=== PATIENT | male | born 1960 | race Caucasian/White ===

== ENCOUNTER 2020-08-11 17:14 | Emergency (ER) | payer OTHER, MEDICARE ==
[2020-08-11] MEDS ORDERED: Sodium Chloride 0.9% 10 ML Syringe FLUSH PRN (17:23)
--- NOTE | 2020-08-11 17:55 | CR ---
[id number] RAD/RAD Chest PA or AP 1V EXAM: FRONTAL CHEST INDICATION: Shortness of breath and fever. COMPARISON: None. DISCUSSION: Cardiomegaly. Mild to moderate bilateral interstitial opacities and central vascular congestion most suggestive of congestive heart failure. Atypical infection could have a similar appearance. A minimal right effusion is suggested. IMPRESSION: 1. Mild to moderate central vascular congestion and interstitial opacities, favor edema over infection. Glenroy Bradford MD 08/11/20 [id number] Thank you for allowing us to participate in the care of your patient.
[2020-08-11] MEDS ORDERED: Piperacillin/Tazobactam 3.375 GM in Sodium Chloride 0.9% 100 ML IV ONE (18:15)
[2020-08-11 18:16] LABS: CHLORIDE,CL 105 mmol/L (98-107); SODIUM,NA 137 mmol/L (136-145)
[2020-08-11 18:19] LABS: ANION GAP 16.1 mmol/L (5-15)
[2020-08-11] MEDS ORDERED: VANCOmycin 1.25 GM/250 ML 1.25 GM in Premix Bag 1 BAG IV ONE (18:19)
[2020-08-11] MEDS ORDERED: Furosemide 40 MG/4 ML VIAL IV ONE (18:27)
[2020-08-11 18:28] LABS: CORONAVIRUS COVID-19 NAA NEGATIVE (NEGATIVE)
--- NOTE | 2020-08-11 18:28 | EDM.PDOC ---
ED HPI GENERAL MEDICAL PROBLEM - General Time Seen by Provider: 08/11/20 17:14 Source of Information: Reports: Patient History Limitations: Reports: No Limitations - History of Present Illness INITIAL COMMENTS - FREE TEXT/NARRATIVE: Pt. presents to ER with complaints of chest pain, cough, fever, and fatigue that started earlier today. He had been given acetaminophen prior to transfer. Tmax since admission to ER was 37.4. Pt. was mildly diaphoretic on arrival to ER and complaining of chills. He has had intermittent cough. He denies any nausea or vomiting. Denies any diarrhea today. Pt. has a history of TBI and appears to bradley ve trouble recollecting events of the day/PMH. Pt. is a resident at the [facility]. [facility]. There is a paucity of information available from his detention chart as he was only placed in the [facility] on 07/10; I do not have access to his discharge summary or admit H and P from his last admission. "Respiratory failure" "luo virus" were listed on his detention records. Nursing staff at detention relates that the reason for admission to the detention was TBI, ESRD, CHF, hypertension, and diabetes. He recently had a dialysis fistula placed in anticipation of future need for dialysis. Pt. states has been without chest pain since he arrived at the ER. He has been experiencing increased peripheral edema. He complains of dyspnea, particularly on exertion as well as orthopnea. Staff states that he has a history of edema to the lower extremities, but it is worse in the past day. Denies any urinary symptoms. Onset: Today Onset Date: 08/11/20 Location: Reports: Chest, Lower Extremity, Left, Lower Extremity, Right, Generalized Associated Symptoms: Reports: Chest Pain, Cough, Diaphoresis, Fever/Chills, Malaise, Weakness Treatments BANKING ASSISTANT: Reports: Acetaminophen Generalized Pain Score (Numeric/FACES): 5 - Related Data Allergies Allergy/AdvReac Type Severity Reaction Status Date / Time No Known Allergies Allergy Verified 08/11/20 17:23 Home Meds: Home Meds Acetaminophen 2 tab PO Q6H PRN 08/11/20 [History] Aspirin [Aspirin EC] 81 mg PO DAILY 08/11/20 [History] Bisacodyl [Gentle Laxative] 10 mg RC DAILY PRN 08/11/20 [History] Chlorthalidone 25 mg PO DAILY 08/11/20 [History] Famotidine 10 mg PO DAILY 08/11/20 [History] Ferrous Sulfate 325 mg PO DAILY 08/11/20 [History] Gabapentin [Neurontin] 200 mg PO BID 08/11/20 [History] Insulin Aspart [Insulin Aspart Penfill] 5 unit SQ WITHMEALSANDBED 08/11/20 [History] Insulin Glarg,Human.Rec.Analog [Lantus] 12 unit SUBCUT DAILY 08/11/20 [History] Lidocaine 5% [Lidoderm 5%] 1 patch TOP DAILY 08/11/20 [History] Lidocaine 5% [Lidoderm 5%] 1 patch TOP DAILY 08/11/20 [History] Liraglutide [Victoza 2-Chad] 1.8 mg SQ DAILY 08/11/20 [History] Multivitamin 1 each PO DAILY 08/11/20 [History] NIFEdipine [Procardia Xl] 60 mg PO BID 08/11/20 [History] Nitroglycerin [Nitrostat] 0.4 mg SL ASDIRECTED PRN 08/11/20 [History] Oxymetazoline [Nasal Decongestant] 15 ml MINERVA BID PRN 08/11/20 [History] Sennosides/Docusate Sodium [Senna Plus 8.6-50 mg Tablet] 2 tab PO BID 08/11/20 [History] Simvastatin 40 mg PO DAILY 08/11/20 [History] Sodium Bicarbonate 650 mg PO TID 08/11/20 [History] carvediloL [Carvedilol] 25 mg PO BID 08/11/20 [History] cloNIDine [Clonidine] 1 each TD ASDIRECTED 08/11/20 [History] hydrALAZINE [Apresoline] 100 mg PO TID 08/11/20 [History] traZODone 50 mg PO BEDTIME 08/11/20 [History] ED ROS GENERAL - Review of Systems Review Of Systems: See Below Constitutional: Reports: Fever, Chills, Malaise, Fatigue, Diaphoresis (mild diaphoresis on arrival to ER.) HEENT: Reports: No Symptoms. Denies: Sinus Problem, Throat Pain, Vertigo Respiratory: Reports: Shortness of Breath, Pleuritic Chest Pain, Cough Cardiovascular: Reports: Dyspnea on Exertion, Orthopnea Endocrine: Reports: Fatigue, High Glucose GI/Abdominal: Reports: Distension (abdominal distention chronically; denies discomfort.). Denies: Black Stool, Bloody Stool, Diarrhea, Hematemesis, Hematochezia, Melena : Reports: No Symptoms Musculoskeletal: Reports: No Symptoms Skin: Reports: Pallor, Dryness, Other (Ashen, harrington) Neurological: Reports: Weakness, Other (Hx. TBI) Psychiatric: Reports: Other (History of alcoholism) Hematologic/Lymphatic: Reports: Anemia (Hemoglobin 4/7 was 8.0. Iron was 23, TIBC 165, Iron sat 14. Ferritin 180. WBC 3.1. Platelet 185.) Immunologic: Reports: No Symptoms ED EXAM, GENERAL - Physical Exam Exam: See Below Exam Limited By: No Limitations General Appearance: Alert, WD/WN, Lethargic, Mild Distress Throat/Mouth: No Airway Compromise Head: Atraumatic, Normocephalic Neck: Normal Inspection, Supple Respiratory/Chest: Respiratory Distress (mild resp. distress), Decreased Breath Sounds, Crackles, Rales Cardiovascular: Normal Peripheral Pulses, Regular Rate, Rhythm, Other (4+ peripheral edema) Peripheral Pulses: 4+: Radial (L) GI/Abdominal: Non-Tender, Distended (Male) Exam: Deferred Rectal (Males) Exam: Deferred Back Exam: Normal Inspection, Full Range of Motion Extremities: Normal Inspection, Normal Range of Motion Neurological: Alert, Oriented, CN II-XII Intact, No Motor/Sensory Deficits, Slow to Respond, Memory Loss Recent Events (chronic problem due to TBI), Other (No unilateral weakness, facial droop, dysarthria, aphasia, vision change) Psychiatric: Normal Mood, Anxious #1 Interpretation Rhythm: NSR ST-T: Other (No acute ST or T wave abnormality) Course - Vital Signs Last Recorded V/S: Last Vital Signs Temp 37.4 C 08/11/20 18:39 Pulse 90 08/11/20 19:00 Resp 22 H 08/11/20 19:00 BP 151/81 H 08/11/20 19:00 Pulse Ox 97 08/11/20 19:00 - Orders/Labs/Meds Orders: Active Orders 24 hr Category Date Time Status CULTURE BLOOD [BC] Stat Lab 08/11/20 17:26 Ordered CULTURE BLOOD [BC] Stat Lab 08/11/20 17:26 Ordered Blood Culture x2 Reflex Set [OM.PC] Stat Oth 08/11/20 17:24 Ordered Peripheral IV Insertion Adult [.] Routine Ot 08/11/20 17:24 Ordered Pulse Oximetry Continuous Monitoring [.] Routine Ot 08/11/20 17:24 Ordered Labs: Laboratory Tests 08/11/20 08/11/20 08/11/20 Range/Units 17:28 17:28 17:28 WBC 2.0 L (4.0-10.0) x10^3/uL RBC 2.95 L (4.5-6.0) x10^6/uL Hgb 8.2 L (14.0-18.0) g/dL Hct 25.9 L (40.0-52.0) % MCV 87.8 (78.0-93.0) fL MCH 27.8 (26.0-32.0) pg MCHC 31.7 L (32.0-36.0) g/dL RDW Coeff of Nisha 15.7 H (10.0-15.0) % Plt Count 206 (130-400) x10^3/uL Add Manual Diff Yes Neutrophils % (Manual) 53 (50-80) % Band Neutrophils % 6 (0-6) % Lymphocytes % (Manual) 22 L (25-50) % Monocytes % (Manual) 13 H (2-11) % Eosinophils % (Manual) 1 (0-4) % Basophils % (Manual) 2 H (0-1) % Metamyelocytes % 2 H (0) % Myelocytes % 1 H (0) % Platelet Estimate Adequate Hypochromasia 1+ slight H Anisocytosis 1+ slight H PT 11.0 (9.9-12.5) SEC INR 1.0 L (2.0-3.5) APTT (25.6-32.8) SEC Sodium 137 (136-145) mmol/L Potassium 4.1 (3.5-5.1) mmol/L Chloride 105 (98-107) mmol/L Carbon Dioxide 20 L (21-32) mmol/L Anion Gap 16.1 H (5-15) mmol/L BUN 54 H (7-18) mg/dL Creatinine 3.2 H* (0.70-1.30) mg/dL Est Cr Clr Drug Dosing TNP Estimated GFR (MDRD) 20 Glucose 362 H (70-99) mg/dL Lactic Acid (0.4-2.0) mmol/L Calcium 7.6 L (8.5-10.1) mg/dL Corrected Calcium 9.04 (8.5-10.1) mg/dL Magnesium 2.0 (1.8-2.4) mg/dL Total Bilirubin 0.4 (0.2-1.0) mg/dL AST 12 L (15-37) U/L ALT 22 (16-63) U/L Alkaline Phosphatase 116 (46-116) U/L Troponin I High Sens 21 (<=76) ng/L C-Reactive Protein 5.0 H (<=0.9) mg/dL NT-Pro-B Natriuret Pep 82755 H (<=125) pg/mL Total Protein 6.4 (6.4-8.2) g/dL Albumin 2.2 L (3.4-5.0) g/dL Globulin 4.2 Albumin/Globulin Ratio 0.52 Urine Color (YELLOW) Urine Appearance (CLEAR) Urine pH (5.0-8.0) Ur Specific [place] Urine Protein (NEGATIVE) mg/dL Urine Glucose (UA) (NEGATIVE) mg/dL Urine Ketones (NEGATIVE) mg/dL Urine Occult Blood (NEGATIVE) Urine Nitrite (NEGATIVE) Urine Bilirubin (NEGATIVE) Urine Urobilinogen (0.2) EU/dL Ur Leukocyte Esterase (NEGATIVE) U Hyaline Cast (Auto) Urine RBC (NOT SEEN) /HPF Urine WBC (NOT SEEN) /HPF Ur Squamous Epith Cells (NOT SEEN) /HPF Urine Bacteria (NOT SEEN) /HPF Granular Casts (Auto) Urine Mucus (NOT SEEN) /LPF Influenza Type A RNA (NEGATIVE) Influenza Type B RNA (NEGATIVE) SARS-CoV-2 RNA (PAGE) (NEGATIVE) 08/11/20 08/11/20 08/11/20 Range/Units 17:28 17:28 17:35 WBC (4.0-10.0) x10^3/uL RBC (4.5-6.0) x10^6/uL Hgb (14.0-18.0) g/dL Hct (40.0-52.0) % MCV (78.0-93.0) fL MCH (26.0-32.0) pg MCHC (32.0-36.0) g/dL RDW Coeff of Nisha (10.0-15.0) % Plt Count (130-400) x10^3/uL Add Manual Diff Neutrophils % (Manual) (50-80) % Band Neutrophils % (0-6) % Lymphocytes % (Manual) (25-50) % Monocytes % (Manual) (2-11) % Eosinophils % (Manual) (0-4) % Basophils % (Manual) (0-1) % Metamyelocytes % (0) % Myelocytes % (0) % Platelet Estimate Hypochromasia Anisocytosis PT (9.9-12.5) SEC INR (2.0-3.5) APTT 25.3 L (25.6-32.8) SEC Sodium (136-145) mmol/L Potassium (3.5-5.1) mmol/L Chloride (98-107) mmol/L Carbon Dioxide (21-32) mmol/L Anion Gap (5-15) mmol/L BUN (7-18) mg/dL Creatinine (0.70-1.30) mg/dL Est Cr Clr Drug Dosing Estimated GFR (MDRD) Glucose (70-99) mg/dL Lactic Acid 1.3 (0.4-2.0) mmol/L Calcium (8.5-10.1) mg/dL Corrected Calcium (8.5-10.1) mg/dL Magnesium (1.8-2.4) mg/dL Total Bilirubin (0.2-1.0) mg/dL AST (15-37) U/L ALT (16-63) U/L Alkaline Phosphatase (46-116) U/L Troponin I High Sens (<=76) ng/L C-Reactive Protein (<=0.9) mg/dL NT-Pro-B Natriuret Pep (<=125) pg/mL Total Protein (6.4-8.2) g/dL Albumin (3.4-5.0) g/dL Globulin Albumin/Globulin Ratio Urine Color (YELLOW) Urine Appearance (CLEAR) Urine pH (5.0-8.0) Ur Specific [place] Urine Protein (NEGATIVE) mg/dL Urine Glucose (UA) (NEGATIVE) mg/dL Urine Ketones (NEGATIVE) mg/dL Urine Occult Blood (NEGATIVE) Urine Nitrite (NEGATIVE) Urine Bilirubin (NEGATIVE) Urine Urobilinogen (0.2) EU/dL Ur Leukocyte Esterase (NEGATIVE) U Hyaline Cast (Auto) Urine RBC (NOT SEEN) /HPF Urine WBC (NOT SEEN) /HPF Ur Squamous Epith Cells (NOT SEEN) /HPF Urine Bacteria (NOT SEEN) /HPF Granular Casts (Auto) Urine Mucus (NOT SEEN) /LPF Influenza Type A RNA Negative (NEGATIVE) Influenza Type B RNA Negative (NEGATIVE) SARS-CoV-2 RNA (PAGE) Negative (NEGATIVE) 08/11/20 Range/Units 18:02 WBC (4.0-10.0) x10^3/uL RBC (4.5-6.0) x10^6/uL Hgb (14.0-18.0) g/dL Hct (40.0-52.0) % MCV (78.0-93.0) fL MCH (26.0-32.0) pg MCHC (32.0-36.0) g/dL RDW Coeff of Nisha (10.0-15.0) % Plt Count (130-400) x10^3/uL Add Manual Diff Neutrophils % (Manual) (50-80) % Band Neutrophils % (0-6) % Lymphocytes % (Manual) (25-50) % Monocytes % (Manual) (2-11) % Eosinophils % (Manual) (0-4) % Basophils % (Manual) (0-1) % Metamyelocytes % (0) % Myelocytes % (0) % Platelet Estimate Hypochromasia Anisocytosis PT (9.9-12.5) SEC INR (2.0-3.5) APTT (25.6-32.8) SEC Sodium (136-145) mmol/L Potassium (3.5-5.1) mmol/L Chloride (98-107) mmol/L Carbon Dioxide (21-32) mmol/L Anion Gap (5-15) mmol/L BUN (7-18) mg/dL Creatinine (0.70-1.30) mg/dL Est Cr Clr Drug Dosing Estimated GFR (MDRD) Glucose (70-99) mg/dL Lactic Acid (0.4-2.0) mmol/L Calcium (8.5-10.1) mg/dL Corrected Calcium (8.5-10.1) mg/dL Magnesium (1.8-2.4) mg/dL Total Bilirubin (0.2-1.0) mg/dL AST (15-37) U/L ALT (16-63) U/L Alkaline Phosphatase (46-116) U/L Troponin I High Sens (<=76) ng/L C-Reactive Protein (<=0.9) mg/dL NT-Pro-B Natriuret Pep (<=125) pg/mL Total Protein (6.4-8.2) g/dL Albumin (3.4-5.0) g/dL Globulin Albumin/Globulin Ratio Urine Color Dark yellow H (YELLOW) Urine Appearance Slightly cloudy H (CLEAR) Urine pH 5.0 (5.0-8.0) Ur Specific [place] 1.025 Urine Protein >=300 H (NEGATIVE) mg/dL Urine Glucose (UA) 250 H (NEGATIVE) mg/dL Urine Ketones Negative (NEGATIVE) mg/dL Urine Occult Blood Negative (NEGATIVE) Urine Nitrite Negative (NEGATIVE) Urine Bilirubin Negative (NEGATIVE) Urine Urobilinogen 0.2 (0.2) EU/dL Ur Leukocyte Esterase Negative (NEGATIVE) U Hyaline Cast (Auto) Few Urine RBC 0-5 (NOT SEEN) /HPF Urine WBC 0-5 (NOT SEEN) /HPF Ur Squamous Epith Cells Not seen (NOT SEEN) /HPF Urine Bacteria Rare (NOT SEEN) /HPF Granular Casts (Auto) Occasional Urine Mucus Occasional H (NOT SEEN) /LPF Influenza Type A RNA (NEGATIVE) Influenza Type B RNA (NEGATIVE) SARS-CoV-2 RNA (PAGE) (NEGATIVE) Meds: Medications Discontinued Medications Generic Name Dose Route Start Last Admin Trade Name Freq PRN Reason Stop Dose Admin Furosemide 40 mg 08/11/20 18:27 08/11/20 18:40 Furosemide 40 Mg/4 Ml Vial IV 08/11/20 18:28 40 mg ONETIME ONE Administration Piperacillin Sod/Tazobactam 100 mls @ 200 mls/hr 08/11/20 18:15 08/11/20 18:43 Sod 3.375 gm/ Sodium Chloride IV 08/11/20 18:44 200 mls/hr STAT ONE Administration Vancomycin HCl 1.25 gm/ Premix 250 mls @ 200 mls/hr 08/11/20 18:19 08/11/20 19:20 IV 08/11/20 19:33 200 mls/hr STAT ONE Administration Sodium Chloride 10 ml 04/25/21 17:23 Sodium Chloride 0.9% 10 Ml Syringe FLUSH ASDIRECTED PRN Keep Vein Open - Radiology Interpretation Free Text/Narrative:: Portable chest x-ray obtain. Bibasilar opacification noted, failure vs. infectious process. No pneumothorax. No lobar pneumonia noted. Departure - Departure Time of Disposition: 19:15 Disposition: DC/Tfer to [facility] 02 Clinical Impression: CHF (congestive heart failure), ESRD with anemia, Healthcare-associated pneumonia - Discharge Information Referrals: Rissa Franco MD [Primary Care Provider] - Forms: ED Department Discharge, Interfacility Transfer [facility] Sepsis Event Note (ED) - Evaluation Sepsis Screening Result: Possible Sepsis Risk - Focused Exam Vital Signs: Vital Signs Temp Pulse Resp BP Pulse Ox 08/11/20 19:00 90 22 H 151/81 H 97 08/11/20 18:39 37.4 C 91 22 H 151/81 H 96 08/11/20 17:14 37.4 C 98 28 H 161/84 H 94 L - Problem List Review Problem List Initiated/Reviewed/Updated: Yes - My Orders Last 24 Hours: My Active Orders 08/11/20 17:24 Blood Culture x2 Reflex Set [OM.PC] Stat Peripheral IV Insertion Adult [OM.PC] Routine Pulse Oximetry Continuous Monitoring [OM.PC] Routine 08/11/20 17:26 CULTURE BLOOD [BC] Stat CULTURE BLOOD [BC] Stat - Assessment/Plan Last 24 Hours: My Active Orders 08/11/20 17:24 Blood Culture x2 Reflex Set [OM.PC] Stat Peripheral IV Insertion Adult [OM.PC] Routine Pulse Oximetry Continuous Monitoring [OM.PC] Routine 08/11/20 17:26 CULTURE BLOOD [BC] Stat CULTURE BLOOD [BC] Stat Plan: Pt. will be transferred to [facility] via [facility] ground ambulance. He is a code 1. Pt. was given lasix 40mg IV. ProBNP was >40,000. Pt. reported some improvement in shortness of breath. He is not on a loop diuretic as an outpatient. Pt. was started on renally adjusted zosyn a 3.375gm IV as well as vancomycin 1.25mg IV. Bibasilar opacification noted on chest x-ray. [place] in [place], and is a resident at a SNF, thus he was covered for pseudomonas and MRSA. Pt. guardian was contacted, as was the detention. Attempts were made to contact the pt. as well, but there was no answer.
== END 2020-08-11 19:25 | disposition short-term general hospital (02) ==
LOC: VM.ED 17:14
DX: J18.9 Pneumonia, unspecified organism (principal); I13.2 Hypertensive heart and chronic kidney disease with heart failure and with stage 5 chronic kidney disease, or end stage renal disease; E11.22 Type 2 diabetes mellitus with diabetic chronic kidney disease; N18.6 End stage renal disease; I50.9 Heart failure, unspecified; D63.1 Anemia in chronic kidney disease; R60.0 Localized edema; Z20.822 Contact with and (suspected) exposure to COVID-19; Z79.82 Long term (current) use of aspirin; Z79.4 Long term (current) use of insulin; Z79.899 Other long term (current) drug therapy
CPT/HCPCS: 0240U; 36415; 71045; 80053; 81001; 83605; 83735; 83880; 84484; 85025; 85610; 85730; 86140; 87040; 93005; 93010; 96365; 96375; 99284; 99285-25; J1940; J2543; J3370

== ENCOUNTER 2020-10-18 18:01 | Emergency (ER) | payer OTHER, MEDICARE ==
[2020-10-18] MEDS ORDERED: Sodium Chloride 0.9% 10 ML Syringe FLUSH PRN (18:12)
[2020-10-18] MEDS: Sodium Chloride 0.9% 500 ML IV ONE (18:28)
--- NOTE | 2020-10-18 18:30 | EDM.PDOC ---
ED HPI GENERAL MEDICAL PROBLEM - General Chief Complaint: Respiratory Problem Stated Complaint: shortness of breath, chilled Time Seen by Provider: 10/18/20 18:15 Source of Information: Reports: Patient, EMS, [facility] Records, Old Records History Limitations: Reports: Altered Mental Status (history of TBI, cognitive impairment) - History of Present Illness INITIAL COMMENTS - FREE TEXT/NARRATIVE: Patient is a [facility]iary resident and a poor historian. Call today from the penitentiary about increased shortness of breath. He does dialysis , and Wednesday. Has not missed dialysis and went yesterday. [facility] claims that he eats more than he is supposed to but they " can't watch him all the time". [facility] denies fever, patient has had covid and vaccination. He is a poor historian and states he feels short of breath, has chest pain and is cold. Also complains at arrival of need for bowel movement. Onset: Unknown/Unsure Duration: Constant, Getting Worse Improves with: Reports: None Worsens with: Reports: None Associated Symptoms: Reports: Confusion, Chest Pain, Cough, cough w sputum (brown), Fever/Chills - Related Data Allergies Allergy/AdvReac Type Severity Reaction Status Date / Time No Known Allergies Allergy Verified 10/18/20 19:08 Home Meds: Home Meds Acetaminophen 2 tab PO Q6H PRN 08/11/20 [History] Aspirin [Aspirin EC] 81 mg PO DAILY 08/11/20 [History] Bisacodyl [Gentle Laxative] 10 mg RC DAILY PRN 08/11/20 [History] Chlorthalidone 25 mg PO DAILY 08/11/20 [History] Famotidine 10 mg PO DAILY 08/11/20 [History] Ferrous Sulfate 325 mg PO DAILY 08/11/20 [History] Gabapentin [Neurontin] 200 mg PO BID 08/11/20 [History] Insulin Aspart [Insulin Aspart Penfill] 5 unit SQ WITHMEALSANDBED 08/11/20 [History] Insulin Glarg,Human.Rec.Analog [Lantus] 12 unit SUBCUT DAILY 08/11/20 [History] Lidocaine 5% [Lidoderm 5%] 1 patch TOP DAILY 08/11/20 [History] Lidocaine 5% [Lidoderm 5%] 1 patch TOP DAILY 08/11/20 [History] Liraglutide [Victoza 2-Chad] 1.8 mg SQ DAILY 08/11/20 [History] Multivitamin 1 each PO DAILY 08/11/20 [History] NIFEdipine [Procardia Xl] 60 mg PO BID 08/11/20 [History] Nitroglycerin [Nitrostat] 0.4 mg SL ASDIRECTED PRN 08/11/20 [History] Oxymetazoline [Nasal Decongestant] 15 ml MINERVA BID PRN 08/11/20 [History] Sennosides/Docusate Sodium [Senna Plus 8.6-50 mg Tablet] 2 tab PO BID 08/11/20 [History] Simvastatin 40 mg PO DAILY 08/11/20 [History] Sodium Bicarbonate 650 mg PO TID 08/11/20 [History] carvediloL [Carvedilol] 25 mg PO BID 08/11/20 [History] cloNIDine [Clonidine] 1 each TD ASDIRECTED 08/11/20 [History] hydrALAZINE [Apresoline] 100 mg PO TID 08/11/20 [History] traZODone 50 mg PO BEDTIME 08/11/20 [History] Past Medical History Cardiovascular History: Reports: CAD, Heart Failure, High Cholesterol, Hypertension Respiratory History: Reports: Other (See Below) Other Respiratory History: respiratory failure Gastrointestinal History: Reports: Other (See Below) Other Gastrointestinal History: dysphagia Genitourinary History: Reports: Renal Disease Musculoskeletal History: Reports: Back Pain, Chronic, Other (See Below) Other Musculoskeletal History: sacroiliitis Neurological History: Reports: Brain Injury, Seizure Psychiatric History: Reports: Addiction Endocrine/Metabolic History: Reports: Diabetes, Type II Hematologic History: Reports: Anemia - Infectious Disease History Infectious Disease History: Reports: C-Difficile, Other (See Below) Other Infectious Disease History: COVID-19 ED ROS GENERAL - Review of Systems Review Of Systems: See Below (difficult to obtain due to cognitive deficit) Constitutional: Reports: Chills, Malaise, Weakness, Fatigue HEENT: Reports: No Symptoms Respiratory: Reports: Shortness of Breath, Pleuritic Chest Pain, Cough, Sputum Cardiovascular: Reports: Chest Pain, Dyspnea on Exertion GI/Abdominal: Reports: No Symptoms, Abdominal Pain. Denies: Constipation, Diarrhea, Nausea, Vomiting Musculoskeletal: Reports: No Symptoms Skin: Reports: No Symptoms Neurological: Reports: Pre-Existing Deficit ED EXAM, SEPSIS - Physical Exam Exam: See Below Exam Limited By: Physical Impairment (limited movement on his own. does not transfer over) General Appearance: Alert, Moderate Distress Eye Exam: Bilateral Eye: EOMI, Normal Inspection, PERRL Ears: Normal External Exam Nose: Normal Inspection, Normal Mucosa, No Blood Throat/Mouth: Normal Inspection, Normal Lips, Normal Oropharynx, Normal Voice Head: Atraumatic Neck: Normal Inspection, Supple Respiratory/Chest: Decreased Breath Sounds, Crackles, Wheezing, Accessory Muscle Use, Prolonged Expiration Cardiovascular: JVD, Tachycardia, Systolic Murmur GI/Abdominal Exam: Normal Bowel Sounds, Soft, Non-Tender, Other (bruising from injections) Extremities: Pedal Edema Neurological: Alert, Confused, Memory Loss Remote Events, Memory Loss Recent Events. No: Oriented Skin: Other (hot to touch) #1 Interpretation EKG Date: 10/18/20 Time: 18:40 Rhythm: NSR Rate (Beats/Min): 114 EKG Interpretation Comments: lvh with repolarization abnormality. No STEMI, baseline wander Course - Vital Signs Last Recorded V/S: Last Vital Signs Temp 39.9 C H 10/18/20 19:40 Pulse 101 H 10/18/20 19:40 Resp 27 H 10/18/20 19:40 BP 150/76 H 10/18/20 19:40 Pulse Ox 93 L 10/18/20 19:40 - Orders/Labs/Meds Orders: Active Orders 24 hr Category Date Time Status Blood Pressure Mgt: Sepsis [RC] Q15MX2 Care 10/18/20 18:13 Active Cardiac Monitoring [RC] . DIRECTED Care 10/18/20 18:16 Active EKG 12 Lead [EKG Documentation Completion] [RC] STAT Care 10/18/20 18:19 Active Oxygen Therapy, ED [RC] STAT Care 10/18/20 18:14 Active Chest 1V Frontal [CR] Stat Exams 10/18/20 18:12 Ordered Chest 2V [CR] Stat Exams 10/18/20 18:12 Stop Req CULTURE BLOOD [BC] Stat Lab 10/18/20 18:13 Ordered CULTURE BLOOD [BC] Stat Lab 10/18/20 18:13 Ordered CULTURE SPUTUM + SMEAR [RM] Stat Lab 10/18/20 18:12 Ordered LACTIC ACID [CHEM] Stat Lab 10/18/20 20:04 Ordered REFLEX LACTIC ACID YES OR NO [CHEM] Routine Lab 10/18/20 19:08 Received Sodium Chloride 0.9% [Saline Flush] Med 10/18/20 18:12 Active 10 ml FLUSH ASDIRECTED PRN Blood Culture x2 Reflex Set [OM.PC] Stat Ot 10/18/20 18:12 Ordered Saline Lock Insert [OM.PC] Stat Ot 10/18/20 18:12 Ordered Severe Sepsis Onset Time [OM.PC] Stat Ot 10/18/20 18:12 Ordered Medication Orders Sodium Chloride (Sodium Chloride 0.9% 10 Ml Syringe) 10 ml FLUSH ASDIRECTED PRN PRN Reason: Keep Vein Open Labs: Laboratory Tests 10/18/20 10/18/20 10/18/20 Range/Units 06:24 06:24 06:24 WBC 0.9 L* (4.0-10.0) x10^3/uL RBC 3.68 L (4.5-6.0) x10^6/uL Hgb 10.4 L D (14.0-18.0) g/dL Hct 33.0 L (40.0-52.0) % MCV 89.7 (78.0-93.0) fL MCH 28.3 (26.0-32.0) pg MCHC 31.5 L (32.0-36.0) g/dL RDW Coeff of Nisha 18.7 H (10.0-15.0) % Plt Count 215 (130-400) x10^3/uL Add Manual Diff Yes Neutrophils % (Manual) 9 L (50-80) % Lymphocytes % (Manual) 60 H (25-50) % Monocytes % (Manual) 26 H (2-11) % Eosinophils % (Manual) 5 H (0-4) % Platelet Estimate Adequate Anisocytosis 2+ moderate H PT 10.0 (9.9-12.5) SEC INR 0.9 L (2.0-3.5) Sodium 136 (136-145) mmol/L Potassium 5.0 (3.5-5.1) mmol/L Chloride 99 (98-107) mmol/L Carbon Dioxide 25 (21-32) mmol/L Anion Gap 17.0 H (5-15) mmol/L BUN 35 H (7-18) mg/dL Creatinine 2.9 H (0.70-1.30) mg/dL Est Cr Clr Drug Dosing TNP Estimated GFR (MDRD) 22 Glucose 185 H (70-99) mg/dL Lactic Acid (0.4-2.0) mmol/L Calcium 7.7 L (8.5-10.1) mg/dL Corrected Calcium 8.9 (8.5-10.1) mg/dL Total Bilirubin 0.3 (0.2-1.0) mg/dL AST 23 (15-37) U/L ALT 50 (16-63) U/L Alkaline Phosphatase 196 H (46-116) U/L Troponin I High Sens 23 (<=76) ng/L C-Reactive Protein 4.9 H (<=0.9) mg/dL NT-Pro-B Natriuret Pep 74375 H (<=125) pg/mL Total Protein 7.6 (6.4-8.2) g/dL Albumin 2.5 L (3.4-5.0) g/dL Globulin 5.1 Albumin/Globulin Ratio 0.49 Urine Color (YELLOW) Urine Appearance (CLEAR) Urine pH (5.0-8.0) Ur Specific [place] Urine Protein (NEGATIVE) mg/dL Urine Glucose (UA) (NEGATIVE) mg/dL Urine Ketones (NEGATIVE) mg/dL Urine Occult Blood (NEGATIVE) Urine Nitrite (NEGATIVE) Urine Bilirubin (NEGATIVE) Urine Urobilinogen (0.2) EU/dL Ur Leukocyte Esterase (NEGATIVE) Urine RBC (NOT SEEN) /HPF Urine WBC (NOT SEEN) /HPF Urine Bacteria (NOT SEEN) /HPF Urine Mucus (NOT SEEN) /LPF SARS CoV-2 RNA Rapid PAGE (NEGATIVE) 10/18/20 10/18/20 10/18/20 Range/Units 06:24 18:42 19:29 WBC (4.0-10.0) x10^3/uL RBC (4.5-6.0) x10^6/uL Hgb (14.0-18.0) g/dL Hct (40.0-52.0) % MCV (78.0-93.0) fL MCH (26.0-32.0) pg MCHC (32.0-36.0) g/dL RDW Coeff of Nisha (10.0-15.0) % Plt Count (130-400) x10^3/uL Add Manual Diff Neutrophils % (Manual) (50-80) % Lymphocytes % (Manual) (25-50) % Monocytes % (Manual) (2-11) % Eosinophils % (Manual) (0-4) % Platelet Estimate Anisocytosis PT (9.9-12.5) SEC INR (2.0-3.5) Sodium (136-145) mmol/L Potassium (3.5-5.1) mmol/L Chloride (98-107) mmol/L Carbon Dioxide (21-32) mmol/L Anion Gap (5-15) mmol/L BUN (7-18) mg/dL Creatinine (0.70-1.30) mg/dL Est Cr Clr Drug Dosing Estimated GFR (MDRD) Glucose (70-99) mg/dL Lactic Acid 2.9 H* (0.4-2.0) mmol/L Calcium (8.5-10.1) mg/dL Corrected Calcium (8.5-10.1) mg/dL Total Bilirubin (0.2-1.0) mg/dL AST (15-37) U/L ALT (16-63) U/L Alkaline Phosphatase (46-116) U/L Troponin I High Sens (<=76) ng/L C-Reactive Protein (<=0.9) mg/dL NT-Pro-B Natriuret Pep (<=125) pg/mL Total Protein (6.4-8.2) g/dL Albumin (3.4-5.0) g/dL Globulin Albumin/Globulin Ratio Urine Color Yellow (YELLOW) Urine Appearance Clear (CLEAR) Urine pH 7.0 (5.0-8.0) Ur Specific [place] 1.025 Urine Protein >=300 H (NEGATIVE) mg/dL Urine Glucose (UA) Negative (NEGATIVE) mg/dL Urine Ketones Negative (NEGATIVE) mg/dL Urine Occult Blood Trace-lysed H (NEGATIVE) Urine Nitrite Negative (NEGATIVE) Urine Bilirubin Negative (NEGATIVE) Urine Urobilinogen 0.2 (0.2) EU/dL Ur Leukocyte Esterase Negative (NEGATIVE) Urine RBC 5-10 H (NOT SEEN) /HPF Urine WBC 0-5 (NOT SEEN) /HPF Urine Bacteria Rare (NOT SEEN) /HPF Urine Mucus Rare H (NOT SEEN) /LPF SARS CoV-2 RNA Rapid PAGE Negative (NEGATIVE) Meds: Medications Generic Name Dose Route Start Last Admin Trade Name Mellisa PRN Reason Stop Dose Admin Sodium Chloride 10 ml 10/18/20 18:12 Sodium Chloride 0.9% 10 Ml Syringe FLUSH ASDIRECTED PRN Keep Vein Open Discontinued Medications Generic Name Dose Route Start Last Admin Trade Name Mellisa PRN Reason Stop Dose Admin Acetaminophen 1,000 mg 10/18/20 18:18 10/18/20 19:28 Acetaminophen 325 Mg Tab PO 10/18/20 18:19 1,000 mg NOW ONE Administration Furosemide 40 mg 10/18/20 19:10 10/18/20 19:13 Furosemide 40 Mg/4 Ml Vial IV 10/18/20 19:11 40 mg ONETIME ONE Administration Sodium Chloride 1,000 mls @ 250 mls/hr 10/18/20 18:12 10/18/20 19:54 Normal Saline IV 10/18/20 22:11 Not Given BOLUS ONE Protocol Sodium Chloride 500 mls @ 500 mls/hr 10/18/20 18:15 10/18/20 18:28 Normal Saline IV 10/18/20 19:14 500 mls/hr ONETIME ONE Administration Piperacillin Sod/Tazobactam 100 mls @ 200 mls/hr 10/18/20 18:46 10/18/20 19:05 Sod 3.375 gm/ Sodium Chloride IV 10/18/20 19:15 200 mls/hr STAT ONE Administration Vancomycin HCl 1 gm/ Sodium 250 mls @ 250 mls/hr 10/18/20 18:46 10/18/20 19:45 Chloride IV 10/18/20 19:45 250 mls/hr STAT ONE Administration - Radiology Interpretation Free Text/Narrative:: bilateral interstitial infiltrates with vascular congestion, underlying pneumonia difficult to identify. No pneumothorax, preliminary, official report delayed and note recieved by 20:20 - Re-Assessments/Exams Free Text/Narrative Re-Assessment/Exam: 10/18/20 18:37 Patient presents to the ED with respiratory issues, brown sputum, fever of 102.4, hypoxia of 88% on room air. Hypertensive but a dialysis patient. Lungs appear wet however sepsis concerns due to fever and acute respiratory failure with hypoxia. Will get blood cultures x 2, lactic, chest x-ray, labs, IV bolus fluids 500 ml/hr x 1 and tylenol 1000 mg po. check covid, but patient already had and vaccinated. patient is a code level 2 and a [facility]. 10/18/20 18:47 call from lab, WBC 0.6 critical low, he has been in the 2 range in the past. Vancomycin and zosyn ordered IV. lasix 40 mg IVP due to increased interstistial infiltrates and elevated BNP ( has been this high before). 10/18/20 19:25 covid negative. call to guardian at [phone]. Update on need for transfer DC for inpatient treatment of sepsis and inpatient dialysis. , Selina is aware and [facility]. She agrees to treatment Call to [facility] for transfer. 10/18/20 19:33 hospitalist and dialysis will confer and call back repeat lactic acid due at 20:30, O2 at 88% on 2.5 liters nc. at 5 lpm NC. improved sats to 92 %. 10/18/20 19:37 10/18/20 20:[address] [facility] declines transfer. Had a bone marrow biopsy in July that was inconclusive, had granulocyte stimulating medication, did rebound WBC at the time. They do not have heme/onc, and feels he needs this service. 20:12 call to [facility] call in [place] Discussed case with DR. Segura Will transfer. 10/18/20 20:25 Dr. Segura accepts for transfer 10/18/20 20:38 repeat lactic pending Departure - Departure Time of Disposition: 20:25 Disposition: DC/Tfer to Acute Hospital 02 Condition: Fair Clinical Impression: CHF (congestive heart failure), ESRD (end stage renal disease) on dialysis, Pneumonia, Acute respiratory failure with hypoxemia, Sepsis - Discharge Information *PRESCRIPTION DRUG MONITORING PROGRAM REVIEWED*: Not Applicable *COPY OF PRESCRIPTION DRUG MONITORING REPORT IN PATIENT KIRIT: Not Applicable Referrals: Rissa Franco MD [Primary Care Provider] - Forms: ED Department Discharge, Interfacility Transfer SAQIBALA Sepsis Event Note (ED) - Focused Exam Vital Signs: Vital Signs Temp Temp Pulse Resp BP Pulse Ox 10/18/20 19:40 39.9 C H 101 H 27 H 150/76 H 93 L 10/18/20 19:30 103 H 33 H 153/80 H 88 L 10/18/20 19:28 39.1 C H 10/18/20 19:24 107 H 32 H 166/83 H 10/18/20 19:15 39.1 C H 107 H 33 H 195/98 H 95 - My Orders Last 24 Hours: My Active Orders 10/18/20 18:12 Chest 1V Frontal [CR] Stat Chest 2V [CR] Stat CULTURE SPUTUM + SMEAR [RM] Stat Sodium Chloride 0.9% [Saline Flush] 10 ml FLUSH ASDIRECTED PRN Blood Culture x2 Reflex Set [OM.PC] Stat Saline Lock Insert [OM.PC] Stat Severe Sepsis Onset Time [OM.PC] Stat 10/18/20 18:13 Blood Pressure Mgt: Sepsis [RC] Q15MX2 CULTURE BLOOD [BC] Stat CULTURE BLOOD [BC] Stat 10/18/20 18:14 Oxygen Therapy, ED [RC] STAT 10/18/20 18:16 Cardiac Monitoring [RC] . DIRECTED 10/18/20 18:19 EKG 12 Lead [EKG Documentation Completion] [RC] STAT 10/18/20 19:08 REFLEX LACTIC ACID YES OR NO [CHEM] Routine 10/18/20 20:04 LACTIC ACID [CHEM] Stat - Assessment/Plan Last 24 Hours: My Active Orders 10/18/20 18:12 Chest 1V Frontal [CR] Stat Chest 2V [CR] Stat CULTURE SPUTUM + SMEAR [RM] Stat Sodium Chloride 0.9% [Saline Flush] 10 ml FLUSH ASDIRECTED PRN Blood Culture x2 Reflex Set [OM.PC] Stat Saline Lock Insert [OM.PC] Stat Severe Sepsis Onset Time [OM.PC] Stat 10/18/20 18:13 Blood Pressure Mgt: Sepsis [RC] Q15MX2 CULTURE BLOOD [BC] Stat CULTURE BLOOD [BC] Stat 10/18/20 18:14 Oxygen Therapy, ED [RC] STAT 10/18/20 18:16 Cardiac Monitoring [RC] . DIRECTED 10/18/20 18:19 EKG 12 Lead [EKG Documentation Completion] [RC] STAT 10/18/20 19:08 REFLEX LACTIC ACID YES OR NO [CHEM] Routine 10/18/20 20:04 LACTIC ACID [CHEM] Stat
[2020-10-18 19:04] LABS: CHLORIDE,CL 99 mmol/L (98-107); SODIUM,NA 136 mmol/L (136-145)
[2020-10-18] MEDS: Piperacillin/Tazobactam 3.375 GM in Sodium Chloride 0.9% 100 ML IV ONE (19:05)
[2020-10-18] MEDS: Furosemide 40 MG/4 ML VIAL IV ONE (19:13)
[2020-10-18] MEDS: Acetaminophen 325 MG Tab PO ONE (19:28)
[2020-10-18] MEDS: Sodium Chloride 0.9% 1,000 ML IV ONE (19:54)
== END 2020-10-18 21:00 | disposition short-term general hospital (02) ==
LOC: VM.ED 18:01
DX: A41.9 Sepsis, unspecified organism (principal); J18.9 Pneumonia, unspecified organism; J96.01 Acute respiratory failure with hypoxia; I13.0 Hypertensive heart and chronic kidney disease with heart failure and stage 1 through stage 4 chronic kidney disease, or unspecified chronic kidney disease; E11.22 Type 2 diabetes mellitus with diabetic chronic kidney disease; N18.6 End stage renal disease; I50.9 Heart failure, unspecified; E78.00 Pure hypercholesterolemia, unspecified; R60.0 Localized edema; Z99.2 Dependence on renal dialysis; Z20.822 Contact with and (suspected) exposure to COVID-19; Z79.82 Long term (current) use of aspirin; Z79.4 Long term (current) use of insulin; Z79.899 Other long term (current) drug therapy
CPT/HCPCS: 36415; 71045; 80053; 81001; 83605; 83880; 84484; 85025; 85610; 86140; 87040; 87635; 93005; 93010; 96365; 96367; 96375; 99284; 99285; A9270; J1940; J2543; J3370; J7030; J7050; U0002

== ENCOUNTER 2021-03-09 06:22 | Emergency (ER) | payer OTHER, MEDICARE ==
[2021-03-09] MEDS ORDERED: LORazepam 2 MG/ML SDV IVPUSH ONE ×2 (06:32→08:15)
[2021-03-09] MEDS ORDERED: LORazepam 2 MG/ML SDV ONE (06:34)
[2021-03-09] MEDS ORDERED: Sodium Chloride 0.9% 10 ML Syringe FLUSH PRN (06:39)
[2021-03-09 07:49] LABS: CHLORIDE,CL 99 mmol/L (98-107); SODIUM,NA 140 mmol/L (136-145)
[2021-03-09 07:50] LABS: ANION GAP 16.9 mmol/L (5-15)
[2021-03-09 07:58] LABS: BARBITURATE SCREEN,URINE NEGATIVE (NEGATIVE)
[2021-03-09 07:59] LABS: BENZODIAZEPINES SCREEN,URINE NEGATIVE (NEGATIVE); BUPRENORPHINE SCREEN,URINE NEGATIVE (NEGATIVE); METHAMPHETAMINE SCREEN, URINE NEGATIVE (NEGATIVE); THC SCREEN,URINE 50 NG/ML NEGATIVE (NEGATIVE)
== END 2021-03-09 10:38 ==
LOC: VM.ED 06:22
DX: R41.0 Disorientation, unspecified (principal); I25.10 Atherosclerotic heart disease of native coronary artery without angina pectoris; I11.0 Hypertensive heart disease with heart failure; I50.9 Heart failure, unspecified; E78.00 Pure hypercholesterolemia, unspecified; E11.9 Type 2 diabetes mellitus without complications; Z79.82 Long term (current) use of aspirin; Z79.4 Long term (current) use of insulin; Z79.899 Other long term (current) drug therapy; Z20.822 Contact with and (suspected) exposure to COVID-19
CPT/HCPCS: 36415; 70450; 71045; 80053; 80305; 80307; 81001; 82140; 82803; 83605; 83735; 83880; 84100; 84145; 84443; 84484; 85025; 85610; 85730; 86140; 87040; 87635; 93005; 96374; 96376; 99285; J2060; 93010; 99284; U0002

== ENCOUNTER 2021-03-09 13:07 | Emergency (ER) | payer OTHER, MEDICARE ==
[2021-03-09] MEDS ORDERED: Sodium Chloride 0.9% 10 ML Syringe FLUSH PRN (13:12)
--- NOTE | 2021-03-09 13:13 | EDM.PDOC ---
ED HPI GENERAL MEDICAL PROBLEM - General Stated Complaint: altered Mental status Time Seen by Provider: 03/09/21 13:07 - History of Present Illness INITIAL COMMENTS - FREE TEXT/NARRATIVE: Patient returns back to the emergency department by ambulance from the local [facility] with concerns of acute confusion or encephalopathy. Please see my note from just a couple of hours ago. This patient typically is very able to do his ADLs on his own. He is a chronic dialysis patient Wednesday. He has not missed any recent dialysis. This morning when he woke up he was confused and moaning he was sent to the emergency department. His work- up was essentially negative he received some Ativan returned back to his baseline by answering questions and he was sent back to the penitentiary. When he returned back there he was confused and combative and agitated so he was sent back to the emergency department. Upon arrival the patient again like he initially presented was encephalopathic moaning. He does follow some commands. Does not answer questions appropriately verbally. No focal neurological deficits. - Related Data Allergies Allergy/AdvReac Type Severity Reaction Status Date / Time No Known Allergies Allergy Verified 03/09/21 13:35 Home Meds: Home Meds Acetaminophen 325 mg PO Q6H PRN 08/11/20 [History] Aspirin [Aspirin EC] 81 mg PO DAILY 08/11/20 [History] Bisacodyl [Gentle Laxative] 10 mg RC DAILY PRN 08/11/20 [History] Gabapentin [Neurontin] 300 mg PO DAILY 08/11/20 [History] Insulin Aspart [Insulin Aspart Penfill] 10 unit SQ WITHMEALSANDBED 08/11/20 [History] Insulin Glarg,Human.Rec.Analog [Lantus] 30 unit SUBCUT DAILY 08/11/20 [History] Lidocaine 5% [Lidoderm 5%] 1 patch TOP DAILY 08/11/20 [History] Lidocaine 5% [Lidoderm 5%] 2 patch TOP DAILY 08/11/20 [History] Multivitamin 1 each PO DAILY 08/11/20 [History] NIFEdipine [Procardia Xl] 30 mg PO BID 08/11/20 [History] Nitroglycerin [Nitrostat] 0.4 mg SL ASDIRECTED PRN 08/11/20 [History] Oxymetazoline [Nasal Decongestant] 15 ml MINERVA BID PRN 08/11/20 [History] Simvastatin 40 mg PO BEDTIME 08/11/20 [History] carvediloL [Carvedilol] 25 mg PO BID 08/11/20 [History] cloNIDine [Clonidine] 1 each TD ASDIRECTED 08/11/20 [History] hydrALAZINE [Apresoline] 100 mg PO TID 08/11/20 [History] traZODone 50 mg PO BEDTIME 08/11/20 [History] Bumetanide [Bumex] 2 mg PO BID 03/09/21 [History] Cholecalciferol (Vitamin D3) [Vitamin D3] 2,000 unit PO DAILY 03/09/21 [History] Cyanocobalamin (Vitamin B-12) [B-12] 500 mcg PO DAILY 03/09/21 [History] Ergocalciferol (Vitamin D2) [Vitamin D2] 50,000 unit PO Q7D 03/09/21 [History] Folic Acid 1 mg PO DAILY 03/09/21 [History] Insulin Aspart [Novolog Flexpen] 100 unit SQ ASDIRECTED 03/09/21 [History] Isosorbide Dinitrate [Isordil] 20 mg PO BID 03/09/21 [History] Omeprazole Magnesium [Prilosec Otc] 20 mg PO DAILY 03/09/21 [History] Polyethylene Glycol 1450 17 gm MC DAILY 03/09/21 [History] predniSONE [Prednisone] 20 mg PO DAILY 03/09/21 [History] Past Medical History Cardiovascular History: Reports: CAD, Heart Failure, High Cholesterol, Hypertension Respiratory History: Reports: Other (See Below) Other Respiratory History: respiratory failure Gastrointestinal History: Reports: Other (See Below) Other Gastrointestinal History: dysphagia Genitourinary History: Reports: Renal Disease Musculoskeletal History: Reports: Back Pain, Chronic, Other (See Below) Other Musculoskeletal History: sacroiliitis Neurological History: Reports: Brain Injury, Seizure Psychiatric History: Reports: Addiction Endocrine/Metabolic History: Reports: Diabetes, Type II Hematologic History: Reports: Anemia - Infectious Disease History Infectious Disease History: Reports: C-Difficile, Novel Coronavirus, Other (See Below) Other Infectious Disease History: COVID-19 ED ROS GENERAL - Review of Systems Review Of Systems: Unable To Obtain Reason Not Obtained: Patient is encephalopathic - Physical Exam Exam: See Below Text/Narrative:: Patient's eyes are open he is alert. He does not track to follow. He intermittently follows commands. He moves all extremities strong equal spontaneously. Nothing to command. He is constantly moving about the bed and needs constant reminder to stay in the bed. He moans out and does not answer any questions appropriately. Different on presentation today shows that the patient has some fine generalized tremors throughout his body. No tonic-clonic type activity. He is not incontinent of urine or stool. Exam Limited By: Altered Mental Status General Appearance: Alert (As above) Eye Exam: Bilateral Eye: EOMI (Does not tract), PERRL (No nystagmus) Ears: Normal External Exam Nose: Normal Inspection Throat/Mouth: Normal Inspection Head Exam: Atraumatic, Normocephalic Neck: Normal Inspection, Supple, Non-Tender, Full Range of Motion Respiratory/Chest: No Respiratory Distress, Lungs Clear, Normal Breath Sounds, No Accessory Muscle Use, Chest Non-Tender Cardiovascular: Normal Peripheral Pulses, Regular Rate, Rhythm GI/Abdominal: Normal Bowel Sounds, No Abnormal Bruit (Male) Exam: Deferred Rectal (Males) Exam: Deferred Neuro Exam (Abbreviated): Alert, Disoriented. No: Sensory/Motor Deficit Back Exam: Normal Inspection Extremities: Normal Inspection, Normal Range of Motion, No Pedal Edema, Normal Capillary Refill Psychiatric: Normal Affect, Normal Mood Skin Exam: Warm, Dry, Intact, Normal Color, No Rash Course - Vital Signs Last Recorded V/S: Last Vital Signs Temp 97.9 F 03/09/21 13:25 Pulse 74 03/09/21 16:00 Resp 14 03/09/21 16:00 BP 138/78 03/09/21 16:00 Pulse Ox 98 03/09/21 16:00 - Orders/Labs/Meds Meds: Medications Discontinued Medications Generic Name Dose Route Start Last Admin Trade Name Mellisa PRN Reason Stop Dose Admin Lorazepam 2 mg 03/09/21 13:16 03/09/21 13:22 Lorazepam 2 Mg/Ml Sdv IM 03/09/21 13:17 2 mg STAT ONE Administration Lorazepam Confirm 03/09/21 13:19 03/09/21 13:23 Lorazepam 2 Mg/Ml Sdv Administered 03/09/21 13:20 Not Given Dose 2 mg .ROUTE .STK-MED ONE Lorazepam 1 mg 03/09/21 14:12 03/09/21 14:20 Lorazepam 2 Mg/Ml Sdv IVPUSH 03/09/21 14:13 1 mg STAT ONE Administration Sodium Chloride 10 ml 03/09/21 13:12 Sodium Chloride 0.9% 10 Ml Syringe FLUSH ASDIRECTED PRN Keep Vein Open - Re-Assessments/Exams Free Text/Narrative Re-Assessment/Exam: 03/11/21 11:12 Patient was given some Ativan upon arrival. CT scan from previous was negative. His blood was not concerning for infection. His ammonia was normal. His alcohol was negative his urine drug screen was negative. I am unsure of what is causing his encephalopathy and I almost wonder if it is not somewhat of a complex or partial seizure. I really have little to no concerns for a stroke at this time. As previously as well. I called and spoke with the hospitalist at the [facility] in [place]. HPI ER COUSE findings and concerns were relayed to her. 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 The [facility] hospitalist is more concerned for a large catastrophic stroke than a seizure and refused the patient in transfer at this time and referred the patient to a stroke center. I do not feel that this is a stroke and most likely a subset of seizures. WE are unable to complete a CTA head and neck a this time. I reluctantly called and spoke with Dr. Brown at [facility] in [place] the stroke neurologist emergency vehicle operations instructor at [facility]. He is in agreeable that this is most likely a seizure although we are unable to rule out a LVO. As we can not exclude a LVO he accepted the patient in transfer at this time to go to the ED for a stroke work up. I called and spoke with Dr. Marcus the ER MD HPI ER COURSE and concerns of a seizure were relayed to him but the need for stroke rule out is also needed. He accepted the patient in transfer at this time for further care management and evaluation. Departure - Departure Time of Disposition: 15:29 Disposition: DC/Tfer to Acute Hospital 02 Clinical Impression: Encephalopathy acute, Seizure - Discharge Information Referrals: PCP,Not In Area [Primary Care Provider] - Forms: Interfacility Transfer HERLINDA
[2021-03-09] MEDS: LORazepam 2 MG/ML SDV IM ONE (13:22)
[2021-03-09] MEDS: LORazepam 2 MG/ML SDV ONE (13:23)
[2021-03-09] MEDS: LORazepam 2 MG/ML SDV IVPUSH ONE (14:20)
== END 2021-03-09 16:10 | disposition short-term general hospital (02) ==
LOC: VM.ED 13:07
DX: G93.40 Encephalopathy, unspecified (principal); R56.9 Unspecified convulsions; I25.10 Atherosclerotic heart disease of native coronary artery without angina pectoris; I11.0 Hypertensive heart disease with heart failure; I50.9 Heart failure, unspecified; E78.00 Pure hypercholesterolemia, unspecified; E11.9 Type 2 diabetes mellitus without complications; D64.9 Anemia, unspecified; Z79.82 Long term (current) use of aspirin; Z79.4 Long term (current) use of insulin; Z79.899 Other long term (current) drug therapy
CPT/HCPCS: 96372; 96374; 99285-25; J2060

== ENCOUNTER 2021-09-10 12:15 | Emergency (ER) | payer OTHER, MEDICARE ==
[2021-09-10] MEDS ORDERED: Sodium Chloride 0.9% 10 ML Syringe FLUSH PRN (12:25)
[2021-09-10] MEDS ORDERED: Acetaminophen 325 MG Tab PO ONE (12:30)
[2021-09-10] MEDS ORDERED: cefTRIAXone 1 GM Vial IVPUSH ONE (12:33)
[2021-09-10] MEDS ORDERED: Sodium Chloride 0.9% 1,000 ML IV SCH (12:45)
[2021-09-10 13:08] LABS: CHLORIDE,CL 100 mmol/L (98-107); SODIUM,NA 141 mmol/L (136-145)
[2021-09-10 13:09] LABS: ANION GAP 17.6 mmol/L (5-15)
== END 2021-09-10 14:45 | disposition short-term general hospital (02) ==
LOC: VM.ED 12:15
DX: J18.9 Pneumonia, unspecified organism (principal); J96.01 Acute respiratory failure with hypoxia; I25.10 Atherosclerotic heart disease of native coronary artery without angina pectoris; I13.2 Hypertensive heart and chronic kidney disease with heart failure and with stage 5 chronic kidney disease, or end stage renal disease; E11.22 Type 2 diabetes mellitus with diabetic chronic kidney disease; N18.6 End stage renal disease; I50.9 Heart failure, unspecified; E78.00 Pure hypercholesterolemia, unspecified; Z86.16 Personal history of COVID-19; Z79.82 Long term (current) use of aspirin; Z79.4 Long term (current) use of insulin; Z79.899 Other long term (current) drug therapy
CPT/HCPCS: 36415; 71045; 80053; 81001; 82947; 83605; 83880; 85025; 85610; 87040; 93005; 93010; 96374; 99284; 99285-25; A9270-GY; J0696; J7030

== ENCOUNTER 2021-09-13 19:26 | Emergency (ER) | payer OTHER, MEDICARE ==
[2021-09-13] MEDS ORDERED: HYDROmorphone 0.5 MG/0.5 ML Syringe IVPUSH ONE (20:21)
== END 2021-09-13 22:33 | disposition short-term general hospital (02) ==
LOC: VM.ED 19:26
DX: S72.001A Fracture of unspecified part of neck of right femur, initial encounter for closed fracture (principal); I11.0 Hypertensive heart disease with heart failure; I50.9 Heart failure, unspecified; I25.10 Atherosclerotic heart disease of native coronary artery without angina pectoris; E78.00 Pure hypercholesterolemia, unspecified; E11.9 Type 2 diabetes mellitus without complications; Z86.16 Personal history of COVID-19; Z79.899 Other long term (current) drug therapy; Z79.82 Long term (current) use of aspirin; Z79.4 Long term (current) use of insulin; W18.39XA Other fall on same level, initial encounter
CPT/HCPCS: 73502; 96374; 99285; J1170; 99284

== ENCOUNTER 2022-02-10 15:57 | Emergency (ER) | payer MEDICARE ==
[2022-02-10] MEDS ORDERED: Sodium Chloride 0.9% 10 ML Syringe FLUSH PRN (16:03)
[2022-02-10] MEDS ORDERED: Acetaminophen 500 MG Tab PO ONE (16:21)
[2022-02-10 16:52] LABS: CHLORIDE,CL 100 mmol/L (98-107); SODIUM,NA 138 mmol/L (136-145)
[2022-02-10 16:53] LABS: ESTIMATED GFR 24 mL/min (>=60)
[2022-02-10 17:19] LABS: CORONAVIRUS COVID-19 NAA NEGATIVE (NEGATIVE); RESPIRATORY SYNCYTIAL VIR NAA NEGATIVE (NEGATIVE)
[2022-02-10] MEDS ORDERED: cefTRIAXone 2 GM, Lidocaine 1% 4.2 ML IM ONE ×2 (17:37)
[2022-02-10] MEDS ORDERED: Doxycycline Monohydrate 100 MG Cap PO ONE (17:38)
== END 2022-02-10 18:22 ==
LOC: VM.ED 15:57
DX: J18.9 Pneumonia, unspecified organism (principal); E11.22 Type 2 diabetes mellitus with diabetic chronic kidney disease; I13.2 Hypertensive heart and chronic kidney disease with heart failure and with stage 5 chronic kidney disease, or end stage renal disease; I50.9 Heart failure, unspecified; N18.6 End stage renal disease; I25.10 Atherosclerotic heart disease of native coronary artery without angina pectoris; E78.00 Pure hypercholesterolemia, unspecified; Z99.2 Dependence on renal dialysis; Z79.82 Long term (current) use of aspirin; Z79.4 Long term (current) use of insulin; Z79.899 Other long term (current) drug therapy; Z20.822 Contact with and (suspected) exposure to COVID-19
CPT/HCPCS: 0241U; 36415; 80053; 81001; 83605; 83735; 84100; 85025; 86140; 87040; 96372; 99284; A9270-GY; J0696

== ENCOUNTER 2022-02-12 16:10 | Emergency (ER) | payer MEDICARE ==
[2022-02-12] MEDS ORDERED: 50% Dextrose in Water 50 ML Syringe IV PRN (16:16)
[2022-02-12] MEDS ORDERED: 50% Dextrose in Water 50 ML Syringe ONE (16:20)
== END 2022-02-12 18:05 | disposition home or self-care (01) ==
LOC: VM.ED 16:10
DX: S05.11XA Contusion of eyeball and orbital tissues, right eye, initial encounter (principal); S30.811A Abrasion of abdominal wall, initial encounter; E11.649 Type 2 diabetes mellitus with hypoglycemia without coma; I25.10 Atherosclerotic heart disease of native coronary artery without angina pectoris; E78.00 Pure hypercholesterolemia, unspecified; I11.0 Hypertensive heart disease with heart failure; I50.9 Heart failure, unspecified; D64.9 Anemia, unspecified; Z79.82 Long term (current) use of aspirin; Z79.4 Long term (current) use of insulin; Z79.899 Other long term (current) drug therapy; W18.30XA Fall on same level, unspecified, initial encounter; Y92.129 Unspecified place in nursing home as the place of occurrence of the external cause
CPT/HCPCS: 82947; 96374; 99284; 99285-25

== ENCOUNTER 2022-02-27 05:25 | Emergency (ER) | payer MEDICARE ==
[2022-02-27] MEDS: cefTRIAXone 2 GM Vial IVPUSH ONE (06:12)
[2022-02-27 06:39] LABS: CORONAVIRUS COVID-19 NAA NEGATIVE (NEGATIVE); RESPIRATORY SYNCYTIAL VIR NAA NEGATIVE (NEGATIVE)
[2022-02-27 06:40] LABS: CHLORIDE,CL 97 mmol/L (98-107); SODIUM,NA 132 mmol/L (136-145)
[2022-02-27 06:41] LABS: ANION GAP 12.8 mmol/L (5-15); ESTIMATED GFR 11 mL/min (>=60)
[2022-02-27] MEDS: Azithromycin 500 MG in Sodium Chloride 0.9% 250 ML IV ONE (07:13)
[2022-02-27] MEDS: Acetaminophen 500 MG Tab PO ONE (09:10)
== END 2022-02-27 10:28 | disposition short-term general hospital (02) ==
LOC: MERGE 05:25 → VM.ED 05:25
DX: J18.9 Pneumonia, unspecified organism (principal); N18.6 End stage renal disease; Z99.2 Dependence on renal dialysis; Z20.822 Contact with and (suspected) exposure to COVID-19
CPT/HCPCS: 0241U; 36415; 70450; 71045; 80053; 81001; 83605; 83735; 83880; 84100; 84145; 84484; 85025; 85610; 85730; 86140; 87040; 93005; 96365; 96375; 99285; A9270; J0456; J0696; J7050

== ENCOUNTER 2022-03-24 17:55 | Emergency (ER) | payer MEDICARE ==
[2022-03-24] MEDS ORDERED: Acetaminophen 325 MG Tab PO ONE (18:01)
[2022-03-24] MEDS ORDERED: cefTRIAXone 2 GM Vial IVPUSH ONE (18:16)
[2022-03-24] MEDS ORDERED: cloNIDine 0.1 MG Tab PO ONE (18:49)
[2022-03-24 18:55] LABS: ANION GAP 9.2 mmol/L (5-15)
[2022-03-24] MEDS ORDERED: Ketorolac 15 MG/ML SDV IVPUSH ONE (19:00)
== END 2022-03-24 20:27 | disposition home or self-care (01) ==
LOC: VM.ED 17:55
DX: J18.9 Pneumonia, unspecified organism (principal); I11.0 Hypertensive heart disease with heart failure; I50.9 Heart failure, unspecified; I25.10 Atherosclerotic heart disease of native coronary artery without angina pectoris; E11.9 Type 2 diabetes mellitus without complications; Z79.899 Other long term (current) drug therapy; Z79.82 Long term (current) use of aspirin; Z79.4 Long term (current) use of insulin; Z86.16 Personal history of COVID-19; Z87.891 Personal history of nicotine dependence
CPT/HCPCS: 36415; 71045; 80053; 83605; 84145; 85025; 86140; 87040; 96374; 96375; 99284; 99284-25; A9270-GY; J0696; J1885